=== PATIENT | male | born 1980 | race Caucasian/White ===

== ENCOUNTER 2022-04-13 21:25 | Emergency (ER) | payer MEDICAID ==
[~2022-04-13] VITALS: Ht 185.4 cm; Wt 111.1 kg
--- NOTE | 2022-04-13 21:50 | NUR ---
BIBS FOR C/O R GROIN PAIN, FEVER AND NAUSEA. PATIENT IS AAOX4. ABLE TO MAKE NEEDS KNOWN. PLACED COMFORTABLY IN BED. VITALS CHECKED.
[2022-04-13] MEDS ORDERED: KETOROLAC TROMETHAMINE INJ 30 MG/ML VIAL IV ONE (22:00)
[2022-04-13] MEDS ORDERED: IV NS 0.9% 1,000 ML BAG IV ONE (22:00)
--- NOTE | 2022-04-13 22:00 | NUR ---
BLOOD DRAWN AND SENT TO LAB
--- NOTE | 2022-04-13 22:30 | NUR ---
MO OF SCOTUM DONE AT BEDSIDE
--- NOTE | 2022-04-13 22:35 | NUR ---
MEGAN EMERSON AT BEDSIDE
[2022-04-13] MEDS ORDERED: KETOROLAC TROMETHAMINE 15 MG/ML VIAL ONE (22:39)
[2022-04-13 22:46] LABS: BASOPHILS % (AUTO) 0.2 % (0.0-2.0); HEMATOCRIT 46 % (39-51); HEMOGLOBIN 15.1 g/dL (13.5-17.5); LYMPHOCYTES # (AUTO) 1.2 K/uL (0.8-4.8); LYMPHOCYTES % (AUTO) 16.5 % (20.0-44.0); MEAN CORPUSCULAR HGB CONC 33 g/dl (31.0-36.0); MEAN CORPUSCULAR VOLUME 88 fL (80-96); MONOCYTES # (AUTO) 0.8 K/uL (0.1-1.30); MONOCYTES % (AUTO) 10.8 % (2.0-12.0); NEUTROPHILS # (AUTO) 5.1 K/uL (1.8-8.9); NEUTROPHILS % (AUTO) 70.5 % (43.0-81.0); PLATELET COUNT (AUTO) 222 K/uL (150-450); RED BLOOD CELL COUNT(AUTO) 5.23 MIL/uL (4.5-6.0); WHITE BLOOD COUNT (AUTO) 7.2 K/uL (4.3-11.0)
[2022-04-13] MEDS ORDERED: IV NS 0.9% 250 ML IV ONE (22:53)
[2022-04-13] MEDS ORDERED: IOHEXOL-300 100 ML VIAL IV ONE (22:53)
[2022-04-13] MEDS ORDERED: CT SWABBABLE VALVE TRANS SET 1 EA INFUS.SET MC ONE (22:53)
[2022-04-13 23:04] LABS: CALCIUM, SERUM 8.8 mg/dL (8.5-10.1); CREATININE 1.2 mg/dL (0.6-1.3); POTASSIUM 3.5 mmol/L (3.5-5.1)
--- NOTE | 2022-04-13 23:10 | NUR ---
PT BROUGHT TO CT SCAN DEPT
--- NOTE | 2022-04-13 23:21 | NUR ---
URINE COLLECTED AND SENT TO LAB
[2022-04-13 23:50] LABS: BILIRUBIN,URINE SMALL (NEGATIVE); COLOR,URINE YELLOW (YELLOW); LEUKOCYTE ESTERASE ,URINE NEGATIVE (NEGATIVE); NITRITE, URINE NEGATIVE (NEGATIVE); PROTEIN,URINE NEGATIVE (NEGATIVE); UGLUCOSE NEGATIVE (NEGATIVE)
[2022-04-14] MEDS ORDERED: DOXY100C2 PO (00:27)
--- NOTE | 2022-04-14 00:34 | NUR ---
Patient discharged to home in stable condition. Written and verbal after care instructions given. Patient verbalizes understanding of instruction. IV removed. Catheter intact and site benign. Pressure and 4x4 applied to site. No bleeding noted. Pt ambulatory with a steady gait
[2022-04-14 00:39] VITALS: BP 150/80
[2022-04-14 01:04] LABS: ALBUMIN 3.8 g/dL (3.4-5.0); TOTAL PROTEIN, SERUM 7.9 g/dL (6.4-8.2)
[2022-04-14 02:59] LABS: BILIRUBIN,DIRECT 0.1 mg/dL (0.0-0.2); BILIRUBIN,TOTAL 0.3 mg/dL (0.2-1.0)
== END 2022-04-14 01:38 | disposition home or self-care (01) ==
LOC: ER 21:35
DX: N48.5 Ulcer of penis (principal); I88.8 Other nonspecific lymphadenitis; R10.31 Right lower quadrant pain; N50.3 Cyst of epididymis; N43.3 Hydrocele, unspecified; M79.10 Myalgia, unspecified site; R50.9 Fever, unspecified; E78.5 Hyperlipidemia, unspecified
CPT/HCPCS: 99285; 96374; 96361; 87593; 76870; 74177; 85025; 80048; 87040 ×2; 83605; 80076; 81003; 36415; 86592; 86593; 87491; 87591; J7030; J7050; Q9967; J1885

== ENCOUNTER 2022-07-13 00:32 | Emergency (ER) | payer MEDICAID ==
[~2022-07-13] VITALS: Ht 185.4 cm; Wt 115.7 kg
[~2022-07-13 00:32] MED LIST: DOXY100C2 PO
[2022-07-13] MEDS ORDERED: IV NS 0.9% 1,000 ML BAG IV ONE (02:00)
[2022-07-13] MEDS ORDERED: ONDANSETRON HCL/PF 4 MG/2 ML VIAL IVP ONE (02:00)
--- NOTE | 2022-07-13 02:00 | NUR ---
BIBS FOR C/O N/V/D AND ABD DISCOMFORT DUE TO SIDE EFFECT OF SAXENDA. GIVEN TO HIM FOR WEIGHT LOSS. AA0X4. ABLE TO MAKE NEEDS KNOWN. PLACED COMFORTABLY IN BED. VITALS CHECKED.
[2022-07-13] MEDS ORDERED: ONDANSETRON HCL/PF 4 MG/2 ML VIAL ONE (02:11)
--- NOTE | 2022-07-13 02:23 | NUR ---
IV CANNULA G20 INSERTED ON L FOREARM.
[2022-07-13] MEDS ORDERED: ONDA4TAB5 PO (02:56)
--- NOTE | 2022-07-13 03:30 | NUR ---
IV CANNULA REMOVED.
--- NOTE | 2022-07-13 03:30 | NUR ---
Patient discharged to home in stable condition. Written and verbal after care instructions given. Patient verbalizes understanding of instruction.
[2022-07-13 04:06] VITALS: BP 130/93
== END 2022-07-13 03:35 | disposition home or self-care (01) ==
LOC: ER 00:35
DX: R11.2 Nausea with vomiting, unspecified (principal); T50.995A Adverse effect of other drugs, medicaments and biological substances, initial encounter; E78.5 Hyperlipidemia, unspecified; F41.9 Anxiety disorder, unspecified; Z88.0 Allergy status to penicillin; Y92.89 Other specified places as the place of occurrence of the external cause
CPT/HCPCS: 99283; 96374; 96361; J2405; J7030 ×2